=== PATIENT | male | born 1980 | race Caucasian/White ===

== ENCOUNTER 2019-11-04 14:33 | Inpatient (IN) | payer OTHER ==
--- NOTE | 2019-11-04 15:48 | PDOC ---
History of Present Illness - General History Source: Patient Exam Limitations: Language Barrier <Emily Mao - Last Filed: 11/04/19 16:24> <GilmoreFlorinda - Last Filed: 11/04/19 17:01> - General Chief Complaint: Wound Stated Complaint: SWOLLEN FOOT Time Seen by Provider: 11/04/19 15:28 Past History - Travel Traveled outside of the country in the last 30 days: No Close contact w/someone who was outside of country & ill: No - Psycho Social/Smoking Cessation Hx Smoking History: Never smoked Have you smoked in the past 12 months: No Information on smoking cessation initiated: No Hx Alcohol Use: No Drug/Substance Use Hx: No <Emily Mao - Last Filed: 11/04/19 16:24> <Florinda Gilmore - Last Filed: 11/04/19 17:01> - Past Medical History Allergies/Adverse Reactions: Allergies Allergy/AdvReac Type Severity Reaction Status Date / Time No Known Allergies Allergy Verified 11/04/19 15:02 Review of Systems - Review of Systems Able to Perform ROS?: Yes Comments:: 11/04/19 16:25 CONSTITUTIONAL: Absent: fever, chills, diaphoresis, generalized weakness, malaise, loss of appetite HEENT: Absent: rhinorrhea, nasal congestion, throat pain, throat swelling, difficulty swallowing, mouth swelling, ear pain, eye pain, visual Changes CARDIOVASCULAR: Absent: chest pain, loss of consciousness, palpitations, irregular heart rate, peripheral edema RESPIRATORY: Absent: cough, shortness of breath, dyspnea with exertion, orthopnea, wheezing, stridor, hemoptysis GASTROINTESTINAL: Absent: abdominal pain, abdominal distension, nausea, vomiting, diarrhea, constipation, melena, hematochezia GENITOURINARY: Absent: dysuria, frequency, urgency, hesitancy, hematuria, flank pain, genital pain MUSCULOSKELETAL: Absent: myalgia, arthralgia, joint swelling SKIN: Present: rash and overlying infection Absent: itching, pallor HEMATOLOGIC/IMMUNOLOGIC: Absent: easy bleeding, easy bruising, lymphadenopathy, frequent infections ENDOCRINE: Absent: unexplained weight gain, unexplained weight loss, heat intolerance, cold intolerance NEUROLOGIC: Absent: headache, focal weakness or paresthesias, dizziness, unsteady gait, seizure, mental status changes, bladder or bowel incontinence PSYCHIATRIC: Absent: anxiety, depression, suicidal or homicidal ideation, hallucinations. Is the patient limited French proficient: No <Emily Mao - Last Filed: 11/04/19 16:24> *Physical Exam - Vital Signs Last Vital Signs Temp Pulse Resp BP Pulse Ox 73 17 115/71 72 L 11/04/19 15:02 11/04/19 15:02 11/04/19 15:02 11/04/19 15:02 - Physical Exam 11/04/19 16:26 GENERAL: Well developed, well nourished. Awake and alert. No acute distress. HEENT: Normocephalic, atraumatic. PERRLA, EOMI. No conjunctival pallor. Sclera are non- icteric. Moist mucous membranes. NECK: Supple. Full ROM. No JVD. Carotid pulses 2+ and symmetric, without bruits. No thyromegaly. No lymphadenopathy. CARDIOVASCULAR: Regular rate and rhythm. No murmurs, rubs, or gallops. Distal pulses are 2+ and symmetric. PULMONARY: No evidence of respiratory distress. Lungs clear to auscultation bilaterally. No wheezing, rales or rhonchi. ABDOMINAL: Soft. Non-tender. Non-distended MUSCULOSKELETAL Normal range of motion at all joints. No bony deformities or tenderness. No CVA tenderness. EXTREMITIES: No cyanosis. No clubbing. (+) right lateral ankle edema. No calf tenderness. SKIN: Ulcer-like rash to the ventral aspect of the right foot measuring approximately the size of a quarter. Multiple vesicular-like lesions also on the ventral aspect of the right foot approximately the size of a pinhead. There is overlying erythema and warmth with associated swelling to the lateral aspect of the right ankle. Warm and dry. Normal capillary refill. No jaundice. NEUROLOGICAL: Alert, awake, appropriate. Cranial nerves 2-12 intact. No deficits to light touch and temperature in face, upper extremities and lower extremities. No motor deficits in the in face, upper extremities and lower extremities. Normoreflexic in the upper and lower extremities. Normal speech. Toes are down- going bilaterally. Gait is normal without ataxia. PSYCHIATRIC: Cooperative. Good eye contact. Appropriate mood and affect. <Emily Mao - Last Filed: 11/04/19 16:24> - Vital Signs Last Vital Signs Temp Pulse Resp BP Pulse Ox 73 17 115/71 72 L 11/04/19 15:02 11/04/19 15:02 11/04/19 15:02 11/04/19 15:02 <Florinda Gilmore - Last Filed: 11/04/19 17:01> ED Treatment Course - LABORATORY CBC & Chemistry Diagram: 11/04/19 16:25 11/04/19 16:25 - Medications Given in the ED: ED Medications Discontinued Medications Generic Name Dose Route Start Last Admin Trade Name Tyesha PRN Reason Stop Dose Admin Ceftriaxone Sodium 1,000 mg/ 50 mls @ 100 mls/hr 11/04/19 16:09 11/04/19 16: 40 Dextrose IVPB 11/04/19 16:38 100 mls/hr ONCE ONE Administration <Florinda Gilmore - Last Filed: 11/04/19 17:01> Medical Decision Making - Medical Decision Making 11/04/19 16:28 The patient is a 39-year-old male no past medical history who presents to the ER today for a rash to the top of his foot. He states the rash started Wednesday. He notes that it was like a blister which then broke. He states that since then the rash has become worse with more blisters popping up on the top of his foot. He also notes that his foot is very painful and swollen and warm to touch. Denies numbness and tingling and weakness to the affected extremity, history of diabetes and recent travel. A/P: Rash On exam patient with an ulcerative lesion and overlying cellulitis. There are areas of vesicular-like lesions. Questionable herpetic sabina versus staph infection. Patient unable to walk without pain; concern for osteo-. X-ray ordered Basic labs, blood cultures drawn. IV Vanco and ceftriaxone. We will also add IV acyclovir per patient's body weight to cover for potential herpetic infection. Plan for admission. Signout given to JEREMY Issa. Patient pending results prior to admission. <Emily Mao - Last Filed: 11/04/19 16:24> - Medical Decision Making I am the patient was seen and evaluated in conjunction with midlevel provider under my direct supervision, ancillary studies were reviewed. I agree with the plan as outlined with JEREMY Conway. HPI, workup/dispo as outlined. VS reviewed, will need repeat. initial spo2 72% which is unlikely as pt is in NAD, well appearing no septic or toxic features, afebrile. normotensive focused exam with right dorsal foot with erythema, swelling and overlying area of superficial ulcer with irregular borders, +pustules, popped blisters, sanguinous discharge, vesicular in appearance.. IV abx with ceftriaxone/vancomycin for mssa/mrsa coverage acyclovir for herpes simplex infection, poorly healing. cannot ambulate, unsafe for discharge basic labs and lytes. xray foot to eval for gas/osteomyelitis admit 11/04/19 16:58 <Florinda Gilmore - Last Filed: 11/04/19 17:01> Discharge - Discharge Information Problems reviewed: Yes <Emily Mao - Last Filed: 11/04/19 16:24> - Admission Yes <Florinda Gilmore - Last Filed: 11/04/19 17:01> - Discharge Information Clinical Impression/Diagnosis: Foot infection Condition: Fair
[2019-11-04] MEDS ORDERED: VANCOMYCIN 1 GM in D5W (PRE-DOCKED) 1,000 MG/250 ML IVPB ONE (15:50)
[2019-11-04] MEDS ORDERED: PIPERACILLIN/TAZOB 3.375 GM 3.375 GM in DEXTROSE 5%-WATER - 50 ML IVPB ONE (15:51)
[2019-11-04] MEDS ORDERED: ACYCLOVIR INJECTION 800 MG in DEXTROSE 5%-WATER - 100 ML IVPB ONE (16:08)
[2019-11-04] MEDS ORDERED: CEFTRIAXONE 1,000 MG in DEXTROSE 5%-WATER - 50 ML IVPB ONE (16:09)
[2019-11-04] MEDS ORDERED: VANCOMYCIN 1 GRAM (PRE-DOCKED) 1,000 MG/250 ML BAG IVPB ONE (16:29)
[2019-11-04] MEDS ORDERED: CEFTRIAXONE 1 GM/50 ML BAG ONE (16:29)
[2019-11-04] MEDS ORDERED: IBUPROFEN 600 MG TABLET (FP) PO ONE ×2 (16:47→17:01)
[2019-11-04 16:57] LABS: BASO % 0.7 % (0-2.0); EOS % 1.5 % (0-4.5); HEMATOCRIT 42.3 % (35.4-49); HEMOGLOBIN 14.6 GM/dL (11.7-16.9); LYMPH % 15.6 % (8-40); MCH 33.7 pg (25.7-33.7); MCHC 34.6 g/dl (32.0-35.9); MEAN CELL VOLUME 97.5 fl (80-96); MONO % 4.5 % (3.8-10.2); NEUT % 77.7 % (42.8-82.8); PLATELET COUNT 239 K/MM3 (134-434); RBC 4.34 M/mm3 (4.00-5.60); RDW 13.7 % (11.9-15.9)
[2019-11-04 17:35] LABS: ALBUMIN 3.7 g/dl (3.4-5.0); BILIRUBIN,TOTAL 0.3 mg/dL (0.2-1); BLOOD UREA NITROGEN 6.6 mg/dL (7-18); CALCIUM 8.2 mg/dL (8.5-10.1); CREATININE 0.7 mg/dL (0.55-1.3); POTASSIUM 4.6 mmol/L (3.5-5.1); TOT PROT 8.5 g/dl (6.4-8.2)
--- NOTE | 2019-11-04 17:45 | PDOC ---
*Physical Exam - Vital Signs Last Vital Signs Temp Pulse Resp BP Pulse Ox 73 17 115/71 99 11/04/19 15:02 11/04/19 15:02 11/04/19 15:02 11/04/19 15:02 ED Treatment Course - LABORATORY CBC & Chemistry Diagram: 11/04/19 16:25 11/04/19 16:25 - ADDITIONAL ORDERS Additional order review: Laboratory Results 11/04/19 16:25 Sodium 138 Potassium 4.6 Chloride 107 Carbon Dioxide 25 Anion Gap 6 L BUN 6.6 L Creatinine 0.7 Est GFR (CKD-EPI)AfAm 136.81 Est GFR (CKD-EPI)NonAf 118.04 Random Glucose 91 Calcium 8.2 L Total Bilirubin 0.3 AST 27 ALT 25 Alkaline Phosphatase 142 H Total Protein 8.5 H Albumin 3.7 11/04/19 16:25 RBC 4.34 MCV 97.5 H MCHC 34.6 RDW 13.7 MPV 9.0 Neutrophils % 77.7 Lymphocytes % 15.6 Monocytes % 4.5 Eosinophils % 1.5 Basophils % 0.7 - Medications Given in the ED: ED Medications Discontinued Medications Generic Name Dose Route Start Last Admin Trade Name Freq PRN Reason Stop Dose Admin Ceftriaxone Sodium 1,000 mg/ 50 mls @ 100 mls/hr 11/04/19 16:09 11/04/19 16: 40 Dextrose IVPB 11/04/19 16:38 100 mls/hr ONCE ONE Administration Ibuprofen 600 mg 11/04/19 16:47 11/04/19 17:00 Motrin - PO 11/04/19 16:48 600 mg ONCE ONE Administration Vancomycin HCl 1,000 mg 11/04/19 15:50 11/04/19 17:00 Vancomycin (Pre-Docked) IVPB 11/04/19 15:51 1,000 mg ONCE ONE Administration Protocol Medical Decision Making - Medical Decision Making Patient signed out to me by JEREMY Mao Patient received IV Vanc/Ceftriaxone/Acyclovir for possible herpetic rash with ? overlying staph/cellulitis Xray shows no gas Blood cultures, wound culture and viral cultures were sent Patient to be admitted 11/04/19 17:43 Discharge - Discharge Information Problems reviewed: Yes Clinical Impression/Diagnosis: Foot infection Condition: Stable - Admission Yes - Follow up/Referral - Patient Discharge Instructions - Post Discharge Activity
[2019-11-04 20:38] LABS: URINE APPEARANCE CLOUDY; URINE BILIRUBIN NEGATIVE (NEGATIVE); URINE COLOR YELLOW; URINE GLUCOSE (UA) NEGATIVE (NEGATIVE); URINE KETONE NEGATIVE (NEGATIVE); URINE LEUK ESTERASE NEGATIVE (NEGATIVE); URINE NITRITE NEGATIVE (NEGATIVE); URINE PROTEIN NEGATIVE (NEGATIVE); URINE UROBILINOGEN 0.2 mg/dL (0.2-1.0)
[2019-11-04] MEDS: ACETAMINOPHEN 325 MG TABLET (FP) PO PRN (20:47)
--- NOTE | 2019-11-04 20:57 | HP ---
Admitting History and Physical - Admission Chief Complaint: right foot swelling and pain History of Present Illness: 39-year-old male no past medical history who presents to the ED for evaluation of swelling and rash to right foot. symptoms started as "heat and tingling" 4 days ago, followed by blistering lesions which opened up. He does not recall having varicella as a child. He is now experiencing pain and swelling to the right foot which affects his ability to ambulate. He also endorses one week of a productive cough without fever/chills/SOB. Denies sick contacts, history of diabetes and recent travel. In ED: Vitals: BP 115/71, HR 73bpm, RR 17, Wt 79.4kg, O2 sat 99% (rm air) Viral and bacterial wound cultures sent to lab, in addition to blood cultures. Pt dosed Vanco and ceftriaxone, along with IV ceftriaxone. Decision made to admit for further management. 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 emergency contact: Canelo Hewitt [phone] Home Medications - Allergies Allergies/Adverse Reactions: Allergies Allergy/AdvReac Type Severity Reaction Status Date / Time No Known Allergies Allergy Verified 11/04/19 15:02 Family Medical History Family History: Unremarkable (pt states mother is alive age 75 and father is alive and well age 70. All his siblings live in [place] and he is unaware of any medical problems) Review of Systems - Review of Systems Constitutional: reports: No Symptoms Eyes: reports: No Symptoms HENT: reports: No Symptoms Neck: reports: No Symptoms Cardiovascular: reports: No Symptoms Respiratory: reports: Cough Gastrointestinal: reports: No Symptoms Genitourinary: reports: No Symptoms Breasts: reports: No Symptoms Reported Musculoskeletal: reports: Extremity Pain (right foot pain) Integumentary: reports: Blister, Lesions (right foot) Neurological: reports: No Symptoms Endocrine: reports: No Symptoms Hematology/Lymphatic: reports: No Symptoms Psychiatric: reports: No Symptoms Physical Examination Vital Signs: Vital Signs Temperature Pulse Rate 73 11/04/19 15:02 Respiratory Rate 17 11/04/19 15:02 Blood Pressure 115/71 11/04/19 15:02 O2 Sat by Pulse Oximetry (%) 99 11/04/19 15:02 Constitutional: Yes: Well Nourished, No Distress, Calm Eyes: Yes: WNL, Conjunctiva Clear, EOM Intact, PERRL HENT: Yes: Atraumatic, Normocephalic Neck: Yes: Supple, Trachea Midline Cardiovascular: Yes: Regular Rate and Rhythm Respiratory: Yes: Regular, CTA Bilaterally Gastrointestinal: Yes: Normal Bowel Sounds, Soft ...Rectal Exam: Yes: Deferred Musculoskeletal: Yes: WNL Extremities: Yes: Other (right foot: +2 edema, two small blisters and one large ulcer lesion all with circumferential redness. Erythema tracking up to lateral ankle) Edema: RLE: 2+ Peripheral Pulses WNL: Yes Peripheral Pulses: Left Radial: 2+, Right Radial: 2+, Left Doralis Pedis: 2+, Right Dorsalis Pedis: 2+ Integumentary: Yes: Erythema Wound/Incision: Yes: Open to air Labs: CBC, BMP 11/04/19 16:25 11/04/19 16:25 Imaging - Results X-ray: Report Reviewed (right foot and ankle x-ray -- pending) Problem List - Problems (1) Herpetic dermatitis Assessment/Plan: acyclovir 800mg TID ID consult for AM isolation precautions Code(s): B00.89 - OTHER HERPESVIRAL INFECTION (2) Cellulitis of foot, right Assessment/Plan: Twice daily wound care ceftriaxone 1gm daily for superimposed bacterial infection f/u viral and bacterial wound cultures Code(s): L03.115 - CELLULITIS OF RIGHT LOWER LIMB Assessment/Plan PPX: ambulate in room as tolerated Bowel regimen: senna APAP PRN pain Visit type - Emergency Visit Emergency Visit: Yes ED Registration Date: 11/04/19 Care time: The patient presented to the Emergency Department on the above date and was hospitalized for further evaluation of their emergent condition. - New Patient This patient is new to me today: Yes Date on this admission: 11/04/19 - Critical Care Critical Care patient: No
[2019-11-04] MEDS ORDERED: PT OWN MED DRAWER 7, Y5N ONE ×2 (22:12→22:32)
[2019-11-04 22:18] LABS: ERYTHROCYTE SEDIMENTATION RATE 19 mm/hr (0-10)
[2019-11-04] MEDS: MUPIROCIN 2% TOPICAL OINTMENT 22 GM TUBE TP SCH (22:57)
[2019-11-04] MEDS: HEPARIN NA (PORCINE) 5,000 UNITS/ML 1ML VIAL SQ SCH (22:57)
[2019-11-04] MEDS: ACYCLOVIR 800 MG TABLET PO SCH (22:57)
[2019-11-04] MEDS: SENNOSIDES 8.6MG TABLET (FP) PO SCH (22:57)
[2019-11-05] MEDS: ACETAMINOPHEN 325 MG TABLET (FP) PO PRN ×3 (02:00→21:22)
[2019-11-05] MEDS: ACYCLOVIR 800 MG TABLET PO SCH ×3 (06:12→21:22)
[2019-11-05 06:16] VITALS: BMI 29.4
[2019-11-05 08:42] LABS: BASO % 0.3 % (0-2.0); HEMATOCRIT 41.7 % (35.4-49); HEMOGLOBIN 14.2 GM/dL (11.7-16.9); LYMPH % 12.6 % (8-40); MCH 33.1 pg (25.7-33.7); MCHC 34.1 g/dl (32.0-35.9); MEAN CELL VOLUME 96.9 fl (80-96); MEAN PLT VOLUME 9.3 fl (7.5-11.1); MONO % 8.5 % (3.8-10.2); NEUT % 77.6 % (42.8-82.8); PLATELET COUNT 210 K/MM3 (134-434); RBC 4.31 M/mm3 (4.00-5.60); RDW 13.4 % (11.9-15.9); WHITE BLOOD COUNT 13.1 K/mm3 (4.0-10.0)
[2019-11-05 08:55] LABS: MAGNESIUM 2.2 mg/dL (1.8-2.4); PHOSPHOROUS 4.2 mg/dL (2.5-4.9)
[2019-11-05] MEDS ORDERED: CEFTRIAXONE 1 GM in DEXTROSE 5%-WATER - 50 ML IVPB SCH (10:00)
[2019-11-05] MEDS ORDERED: FLU VACCINE QUAD 60 MCG/0.5 ML (MDV 19-20) IM ONE (10:00)
[2019-11-05] MEDS ORDERED: cefTRIAXone SODIUM 1 GM VIAL ONE (10:06)
[2019-11-05] MEDS ORDERED: DEXTROSE 5%-WATER - 50 ML IVPB ONE ×2 (10:06→22:17)
[2019-11-05] MEDS: MUPIROCIN 2% TOPICAL OINTMENT 22 GM TUBE TP SCH ×2 (10:11→21:22)
[2019-11-05] MEDS: HEPARIN NA (PORCINE) 5,000 UNITS/ML 1ML VIAL SQ SCH ×2 (10:11→21:21)
--- NOTE | 2019-11-05 12:08 | EKG ---
Test Reason : Blood Pressure : / mmHG Vent. Rate : 071 BPM Atrial Rate : 071 BPM P-R Int : 166 ms QRS Dur : 090 ms QT Int : 398 ms P-R-T Axes : 037 -07 022 degrees QTc Int : 432 ms NORMAL SINUS RHYTHM NORMAL ECG NO PREVIOUS ECGS AVAILABLE Confirmed by MARCELLA WOODARD MD ([id number]) on 11/05/2019 12:08:25 PM Referred By: Confirmed By:MARCELLA WOODARD MD
[2019-11-05] MEDS ORDERED: PT OWN MED DRAWER 7, Y5N ONE ×2 (14:31→18:49)
[2019-11-05] MEDS ORDERED: AMPICILLIN NA/SULBACTAM NA 3 GM in SODIUM CHLORIDE 100 ML IVPB SCH (17:45)
[2019-11-05] MEDS: SENNOSIDES 8.6MG TABLET (FP) PO SCH (21:22)
--- NOTE | 2019-11-05 21:55 | PN ---
Progress Note (short form) - Note Progress Note: ID CONSULT DICTATED CELLULITIS R FOOT ? L5 DERMATOME VZV AWAIT C/S EMPIRIC VANCOMYCIN/ ZOSYN VALTREX PO
[2019-11-05] MEDS ORDERED: PIPERACILLIN/TAZOBACTAM 3.375 GM VIAL IVPB ONE (22:17)
[2019-11-05] MEDS: PIPERACILLIN/TAZOB 3.375 GM 3.375 GM in DEXTROSE 5%-WATER - 50 ML IVPB SCH (22:23)
[2019-11-05] MEDS: valACYclovir HCL 500 MG TABLET (FP) PO SCH (22:23)
--- NOTE | 2019-11-05 22:23 | PN ---
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 OBJECTIVE: Vital Signs Period Temp Pulse Resp BP Sys/Hardy Pulse Ox Last 24 Hr 97.9 F-98.5 F 62-78 18-18 118-153/70-86 GENERAL: The patient is awake, alert, and fully oriented, in no acute distress. HEAD: Normal with no signs of trauma. EYES: PERRL, extraocular movements intact, sclera anicteric, conjunctiva clear. No ptosis. ENT: Ears normal, nares patent, oropharynx clear without exudates, moist mucous membranes. NECK: Trachea midline, full range of motion, supple. LUNGS: Breath sounds equal, clear to auscultation bilaterally, no wheezes, no crackles, no accessory muscle use. HEART: Regular rate and rhythm, S1, S2 without murmur, rub or gallop. ABDOMEN: Soft, nontender, nondistended, normoactive bowel sounds, no guarding, no rebound, no hepatosplenomegaly, no masses. EXTREMITIES: 2+ pulses, warm, well-perfused, RLE foot edema, RLE erythematous, ulcer lesion with black/eschar center, small fluid filled and partially erupted vesicles surrounding ulcer. NEUROLOGICAL: Cranial nerves II through XII grossly intact. Normal speech, gait not observed. PSYCH: Normal mood, normal affect. SKIN: RLE erythematous, ulcer lesion with black/eschar center, small fluid filled and partially erupted vesicles surrounding ulcer. Laboratory Results - last 24 hr 11/05/19 11/05/19 07:05 07:05 WBC 13.1 H RBC 4.31 Hgb 14.2 Hct 41.7 MCV 96.9 H MCH 33.1 MCHC 34.1 RDW 13.4 Plt Count 210 MPV 9.3 Absolute Neuts (auto) 10.2 H Neutrophils % 77.6 Lymphocytes % 12.6 Monocytes % 8.5 D Eosinophils % 1.0 Basophils % 0.3 Nucleated RBC % 0 Phosphorus 4.2 Magnesium 2.2 Active Medications Generic Name Dose Route Start Last Admin Trade Name Freq PRN Reason Stop Dose Admin Acetaminophen 650 mg 11/04/19 19:17 03/01/20 21:22 Tylenol - PO 650 mg Q6H PRN Administration PAIN LEVEL 4 - 6 Heparin Sodium (Porcine) 5,000 unit 11/04/19 22:00 11/05/19 21:21 Heparin - SQ 5,000 unit BID JEANETTE Administration Vancomycin HCl 1,000 mg in 250 mls @ 166.667 mls/hr 11/05/19 22:00 Vancomycin (Pre-Docked) IVPB Q12H JEANETTE Protocol Piperacillin Sod/Tazobactam 50 mls @ 100 mls/hr 11/05/19 22:00 Sod 3.375 gm/ Dextrose IVPB Q8H-IV JEANETTE Protocol Mupirocin 1 applic 11/04/19 22:00 11/05/19 21:22 Bactroban 2% Ointment - TP 1 applic BID JEANETTE Administration Senna 2 tab 11/04/19 22:00 11/05/19 21:22 Senna - PO 2 tab HS JEANETTE Administration Valacyclovir HCl 1,000 mg 11/05/19 22:00 Valtrex - PO TID JEANETTE ASSESSMENT/PLAN: 39 year old M from [place], denies PMHx, presents with RLE swelling, erythema and pain x1 week founnd to have RLE cellulitis (superinfection) 2/2 ?herpetic zoster rash. 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 IV abx with vanc/zosyn, IV Valtrex, monitor CRE function, follow cultures RLE elevation, wound care ID Consult: Dr Keith DVT ppx: Heparin SC Airborne/Contact isolation Med Surg Problem List - Problems (1) Cellulitis of foot, right Code(s): L03.115 - CELLULITIS OF RIGHT LOWER LIMB Visit type - Emergency Visit Emergency Visit: Yes ED Registration Date: 11/04/19 Care time: The patient presented to the Emergency Department on the above date and was hospitalized for further evaluation of their emergent condition. - New Patient This patient is new to me today: Yes Date on this admission: 11/07/19 - Critical Care Critical Care patient: No - Discharge Referral Referred to [facility] No
[2019-11-05] MEDS: VANCOMYCIN 1 GRAM (PRE-DOCKED) 1,000 MG/250 ML BAG IVPB SCH (22:34)
[2019-11-06] MEDS ORDERED: DEXTROSE 5%-WATER - 50 ML IVPB ONE ×2 (00:45→09:44)
[2019-11-06] MEDS ORDERED: PIPERACILLIN/TAZOBACTAM 3.375 GM VIAL IVPB ONE ×2 (00:45→09:44)
[2019-11-06] MEDS: PIPERACILLIN/TAZOB 3.375 GM 3.375 GM in DEXTROSE 5%-WATER - 50 ML IVPB SCH ×2 (01:11→10:13)
[2019-11-06] MEDS: valACYclovir HCL 500 MG TABLET (FP) PO SCH ×2 (05:41→14:00)
[2019-11-06 07:59] LABS: BASO % 0.6 % (0-2.0); EOS % 0.6 % (0-4.5); HEMATOCRIT 42.3 % (35.4-49); HEMOGLOBIN 14.4 GM/dL (11.7-16.9); LYMPH % 12.3 % (8-40); MCH 32.9 pg (25.7-33.7); MCHC 34.1 g/dl (32.0-35.9); MEAN CELL VOLUME 96.4 fl (80-96); MEAN PLT VOLUME 9.5 fl (7.5-11.1); MONO % 6.9 % (3.8-10.2); NEUT % 79.6 % (42.8-82.8); PLATELET COUNT 224 K/MM3 (134-434); RBC 4.39 M/mm3 (4.00-5.60); RDW 13.5 % (11.9-15.9); WHITE BLOOD COUNT 11.6 K/mm3 (4.0-10.0)
[2019-11-06 08:16] LABS: CHOLESTEROL 133 mg/dL (50-200); HDL CHOLESTEROL 48 mg/dL (40-60); LDL CHOLESTEROL (ONLY SJRH) 65 mg/dL (5-100); TRIGLYCERIDES 127 mg/dL (0-150)
[2019-11-06 08:24] LABS: ALBUMIN 3.2 g/dl (3.4-5.0); BILIRUBIN,TOTAL 0.5 mg/dL (0.2-1); BLOOD UREA NITROGEN 22.5 mg/dL (7-18); CALCIUM 8.6 mg/dL (8.5-10.1); CREATININE 2.9 mg/dL (0.55-1.3); POTASSIUM 4.1 mmol/L (3.5-5.1); TOT PROT 7.5 g/dl (6.4-8.2)
--- NOTE | 2019-11-06 09:20 | PN ---
Progress Note, Physician History of Present Illness: 39 year old M from [place], denies PMHx, presents with RLE swelling, erythema and pain x1 week founnd to have RLE cellulitis (superinfection) 2/2 ?herpetic zoster rash. - Current Medication List Current Medications: Active Medications Acetaminophen (Tylenol -) 650 mg PO Q6H PRN PRN Reason: PAIN LEVEL 4 - 6 Last Admin: 11/05/19 21:22 Dose: 650 mg Heparin Sodium (Porcine) (Heparin -) 5,000 unit SQ BID JEANETTE Last Admin: 11/05/19 21:21 Dose: 5,000 unit Vancomycin HCl (Vancomycin (Pre-Docked)) 1,000 mg in 250 mls @ 166.667 mls/hr IVPB Q12H JEANETTE; Protocol Last Admin: 11/05/19 22:34 Dose: 166.667 mls/hr Piperacillin Sod/Tazobactam (Sod 3.375 gm/ Dextrose) 50 mls @ 100 mls/hr IVPB Q8H-IV JEANETTE; Protocol Last Admin: 11/06/19 01:11 Dose: 100 mls/hr Mupirocin (Bactroban 2% Ointment -) 1 applic TP BID JEANETTE Last Admin: 11/05/19 21:22 Dose: 1 applic Senna (Senna -) 2 tab PO HS JEANETTE Last Admin: 11/05/19 21:22 Dose: 2 tab Valacyclovir HCl (Valtrex -) 1,000 mg PO TID JEANETTE Last Admin: 11/06/19 05:41 Dose: 1,000 mg - Objective Vital Signs: Vital Signs Temperature 98.3 F 11/06/19 03:00 Pulse Rate 61 11/06/19 03:00 Respiratory Rate 18 11/06/19 03:00 Blood Pressure 142/68 11/06/19 03:00 O2 Sat by Pulse Oximetry (%) 99 11/04/19 15:02 Labs: CBC, BMP 11/06/19 07:10 11/06/19 07:10 Problem List - Problems (1) Prophylactic measure Code(s): Z29.9 - ENCOUNTER FOR PROPHYLACTIC MEASURES, UNSPECIFIED (2) Cellulitis of foot, right Code(s): L03.115 - CELLULITIS OF RIGHT LOWER LIMB (3) Herpetic dermatitis Code(s): B00.89 - OTHER HERPESVIRAL INFECTION
[2019-11-06] MEDS ORDERED: PT OWN MED DRAWER 7, Y5N ONE ×2 (09:45→15:50)
[2019-11-06] MEDS: HEPARIN NA (PORCINE) 5,000 UNITS/ML 1ML VIAL SQ SCH ×2 (10:12→21:24)
[2019-11-06] MEDS: VANCOMYCIN 1 GRAM (PRE-DOCKED) 1,000 MG/250 ML BAG IVPB SCH (10:13)
[2019-11-06] MEDS: MUPIROCIN 2% TOPICAL OINTMENT 22 GM TUBE TP SCH ×2 (10:13→21:24)
[2019-11-06] MEDS ORDERED: DEXTROSE 5%-WATER 100 ML IVPB ONE (16:52)
--- NOTE | 2019-11-06 16:54 | CONSULT ---
Consult Consult Specialty:: Nephrology Reason for Consultation:: TATE - History of Present Illness Chief Complaint: right foot pain and erythema History of Present Illness: Pt is a 39 year old male with no past medical history who presents to the ER with right foot pain and swelling. He was admitted for treatment. He was treated for cellulitis and possible zoster. He still has foot pain. He denies fevers or chills. I was called to evaluate him for TATE. He was found to have elevated administrator social welfare on labs today. He denies dysuria or hematuria. He denies history of CKD. He was on acylovir, zosyn and ceftriaxone. 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 History of Recent Travel: No Home Medications - Allergies Allergies/Adverse Reactions: Allergies Allergy/AdvReac Type Severity Reaction Status Date / Time No Known Allergies Allergy Verified 11/04/19 15:02 Family Medical History Family History: Denies Review of Systems - Review of Systems Constitutional: reports: Malaise Eyes: reports: No Symptoms HENT: reports: No Symptoms Neck: reports: No Symptoms Cardiovascular: reports: No Symptoms Respiratory: reports: No Symptoms Gastrointestinal: reports: No Symptoms Genitourinary: reports: No Symptoms Breasts: reports: No Symptoms Reported Musculoskeletal: reports: No Symptoms Integumentary: reports: Erythema Endocrine: reports: No Symptoms Psychiatric: reports: No Symptoms Physical Exam Vital Signs: Vital Signs Temperature 98.9 F 11/06/19 14:00 Pulse Rate 71 11/06/19 14:00 Respiratory Rate 20 11/06/19 14:00 Blood Pressure 127/84 11/06/19 14:00 O2 Sat by Pulse Oximetry (%) 99 11/04/19 15:02 Constitutional: Yes: Calm Eyes: Yes: Conjunctiva Clear HENT: Yes: Atraumatic Neck: Yes: Supple Cardiovascular: Yes: S1, S2 Respiratory: Yes: CTA Bilaterally Gastrointestinal: Yes: Normal Bowel Sounds, Soft Renal/: Yes: WNL Musculoskeletal: Yes: WNL Edema: No Integumentary: Yes: Other (right foot erythema) Neurological: Yes: Oriented Psychiatric: Yes: Oriented Labs: CBC, BMP 11/06/19 07:10 11/06/19 07:10 Imaging - Results X-ray: Report Reviewed Problem List - Problems (1) TATE (acute kidney injury) Code(s): N17.9 - ACUTE KIDNEY FAILURE, UNSPECIFIED (2) Cellulitis of foot, right Code(s): L03.115 - CELLULITIS OF RIGHT LOWER LIMB (3) Foot infection Code(s): L08.9 - LOCAL INFECTION OF THE SKIN AND SUBCUTANEOUS TISSUE, UNSP Assessment/Plan Current Medications Generic Name Dose Route Start Last Admin Trade Name Freq PRN Reason Stop Dose Admin Acetaminophen 650 mg 11/04/19 19:17 11/05/19 21:22 Tylenol - PO 650 mg Q6H PRN Administration PAIN LEVEL 4 - 6 Heparin Sodium (Porcine) 5,000 unit 11/04/19 22:00 11/06/19 10:12 Heparin - SQ 5,000 unit BID JEANETTE Administration Ceftriaxone Sodium 2 gm/ 100 mls @ 200 mls/hr 11/06/19 16:45 Dextrose IVPB DAILY JEANETTE Protocol Clindamycin Phosphate 600 mg in 50 mls @ 100 mls/hr 11/06/19 18:00 Cleocin 600 Mg Premix Ivpb - IVPB Q8H-IV JEANETTE Protocol Mupirocin 1 applic 11/04/19 22:00 11/06/19 10:13 Bactroban 2% Ointment - TP 1 applic BID JEANETTE Administration Senna 2 tab 11/04/19 22:00 11/05/19 21:22 Senna - PO 2 tab HS JEANETTE Administration Impression 1. TATE 2. cellulitis 3. possible zoster Plan - zosyn and acyclovir were held - check ua - send urine eos - repeat labs in am - start fluids - check renal ultrasound - send urine lytes and administrator social welfare to calc fena
[2019-11-06] MEDS: SODIUM CHLORIDE 0.45% 1,000 ML IV SCH (17:26)
[2019-11-06] MEDS: CEFTRIAXONE 2 GM in DEXTROSE 5%-WATER 100 ML IVPB SCH (17:27)
--- NOTE | 2019-11-06 17:31 | PN ---
Progress Note, Physician Chief Complaint: Examined sitting in chair. c/o pain to right foot. History of Present Illness: 39 year old M from [place], denies PMHx, presents with RLE swelling, erythema and pain x1 week founnd to have RLE cellulitis (superinfection) 2/2 ?herpetic zoster rash. - Current Medication List Current Medications: Active Medications Acetaminophen (Tylenol -) 650 mg PO Q6H PRN PRN Reason: PAIN LEVEL 4 - 6 Last Admin: 11/05/19 21:22 Dose: 650 mg Heparin Sodium (Porcine) (Heparin -) 5,000 unit SQ BID JEANETTE Last Admin: 11/06/19 10:12 Dose: 5,000 unit Ceftriaxone Sodium 2 gm/ (Dextrose) 100 mls @ 200 mls/hr IVPB DAILY JEANETTE; Protocol Last Admin: 11/06/19 17:27 Dose: 200 mls/hr Clindamycin Phosphate (Cleocin 600 Mg Premix Ivpb -) 600 mg in 50 mls @ 100 mls /hr IVPB Q8H-IV JEANETTE; Protocol Sodium Chloride (1/2 Normal Saline) 1,000 mls @ 83 mls/hr IV ASDIR JEANETTE Last Admin: 11/06/19 17:26 Dose: 83 mls/hr Mupirocin (Bactroban 2% Ointment -) 1 applic TP BID [facility] Last Admin: 11/06/19 10:13 Dose: 1 applic Senna (Senna -) 2 tab PO HS JEANETTE Last Admin: 11/05/19 21:22 Dose: 2 tab - Objective Vital Signs: Vital Signs Temperature 98.9 F 11/06/19 14:00 Pulse Rate 71 11/06/19 14:00 Respiratory Rate 20 11/06/19 14:00 Blood Pressure 127/84 11/06/19 14:00 O2 Sat by Pulse Oximetry (%) 99 11/04/19 15:02 Constitutional: Yes: Well Nourished, No Distress, Calm Eyes: Yes: WNL, Conjunctiva Clear HENT: Yes: WNL, Atraumatic, Normocephalic Neck: Yes: WNL, Supple, Trachea Midline Cardiovascular: Yes: WNL, Regular Rate and Rhythm Respiratory: Yes: WNL, Regular, CTA Bilaterally Gastrointestinal: Yes: WNL, Normal Bowel Sounds ...Rectal Exam: Yes: Deferred Genitourinary: Yes: WNL Breast(s): Yes: WNL Musculoskeletal: Yes: WNL Extremities: Yes: Erythema, Other (right foot: +2 edema, two small blisters ruptured and one large ulcer lesion all with circumferential redness. Erythema tracking up to lateral ankle) Labs: CBC, BMP 11/06/19 07:10 11/06/19 07:10 - ....Imaging Ultrasound: Pending (renal US pending) Problem List - Problems (1) Prophylactic measure Assessment/Plan: FEN Fluids: adequate PO intake, will start IVF with rising Cr Electrolytes: monitor & replete as needed Nutrition: reg diet DVT moderate risk sq heparin Dispo Maintain as inpatient full code discharge planning Code(s): Z29.9 - ENCOUNTER FOR PROPHYLACTIC MEASURES, UNSPECIFIED (2) Cellulitis of foot, right Assessment/Plan: right foot with cellulitic changes started on vanco and zosyn Cr rising vanco stopped and will check random level elevate LE Code(s): L03.115 - CELLULITIS OF RIGHT LOWER LIMB (3) Herpetic dermatitis Assessment/Plan: started on valtrex Cr from 0.6 --> 2.9 stopped and will cont to monitor lesions varicella ab pending ID following contact isolation Code(s): B00.89 - OTHER HERPESVIRAL INFECTION (4) TATE (acute kidney injury) Assessment/Plan: Cr 0.6-->2.9 after receiving valtrex urine lytes sent and pending ua pending IVF started renal US pending further avoid nephrotoxic agents renal consulted Code(s): N17.9 - ACUTE KIDNEY FAILURE, UNSPECIFIED Visit type - Emergency Visit Emergency Visit: Yes ED Registration Date: 11/04/19 Care time: The patient presented to the Emergency Department on the above date and was hospitalized for further evaluation of their emergent condition. - New Patient This patient is new to me today: Yes Date on this admission: 11/06/19 - Critical Care Critical Care patient: No - Discharge Referral Referred to [facility] No
[2019-11-06] MEDS: CLINDAMYCIN 600MG PREMIX IVPB 600 MG/50 ML BAG IVPB SCH (17:47)
--- NOTE | 2019-11-06 21:05 | PN ---
Progress Note, Physician History of Present Illness: AWAKE IN BED OFFERS NO COMPLAINTS DENIES FOOT PAIN MARKED RISE IN CR NOTED - Current Medication List Current Medications: Active Medications Acetaminophen (Tylenol -) 650 mg PO Q6H PRN PRN Reason: PAIN LEVEL 4 - 6 Last Admin: 11/05/19 21:22 Dose: 650 mg Heparin Sodium (Porcine) (Heparin -) 5,000 unit SQ BID JEANETTE Last Admin: 11/06/19 10:12 Dose: 5,000 unit Ceftriaxone Sodium 2 gm/ (Dextrose) 100 mls @ 200 mls/hr IVPB DAILY JEANETTE; Protocol Last Admin: 11/06/19 17:27 Dose: 200 mls/hr Clindamycin Phosphate (Cleocin 600 Mg Premix Ivpb -) 600 mg in 50 mls @ 100 mls /hr IVPB Q8H-IV JEANETTE; Protocol Last Admin: 11/06/19 17:47 Dose: 100 mls/hr Sodium Chloride (1/2 Normal Saline) 1,000 mls @ 83 mls/hr IV ASDIR JEANETTE Last Admin: 11/06/19 17:26 Dose: 83 mls/hr Mupirocin (Bactroban 2% Ointment -) 1 applic TP BID JEANETTE Last Admin: 11/06/19 10:13 Dose: 1 applic Senna (Senna -) 2 tab PO HS JEANETTE Last Admin: 11/05/19 21:22 Dose: 2 tab - Objective Vital Signs: Vital Signs Temperature 98.0 F 11/06/19 18:39 Pulse Rate 88 11/06/19 18:39 Respiratory Rate 20 11/06/19 18:39 Blood Pressure 128/90 11/06/19 18:39 O2 Sat by Pulse Oximetry (%) 99 11/04/19 15:02 Constitutional: Yes: No Distress Cardiovascular: Yes: Regular Rate and Rhythm, S1, S2 Respiratory: Yes: CTA Bilaterally Gastrointestinal: Yes: Normal Bowel Sounds, Soft Extremities: Yes: Other (+ SWELLING/ ERYTHEMA LATERAL ASPECT R FOOT DRY ULCERS , DORSUM OF FOOT NO TENDERNESS TO PALPATION) Labs: CBC, BMP 11/06/19 07:10 11/06/19 07:10 Assessment/Plan CELLULITIS R FOOT ? ACUTE RENAL FAILURE + WOUND C/S GRP A STREP D/C VANCO/ ZOSYN/ ACV SUBSTITUTE CEFTRIAXONE/ CLINDAMYCIN IVF REPEAT CHEMISTRIES
[2019-11-06] MEDS: SENNOSIDES 8.6MG TABLET (FP) PO SCH (21:24)
[2019-11-07] MEDS: CLINDAMYCIN 600MG PREMIX IVPB 600 MG/50 ML BAG IVPB SCH ×3 (01:04→17:41)
[2019-11-07 08:24] LABS: BASO % 0.9 % (0-2.0); EOS % 1.5 % (0-4.5); HEMATOCRIT 41.6 % (35.4-49); HEMOGLOBIN 14.1 GM/dL (11.7-16.9); LYMPH % 21.1 % (8-40); MEAN PLT VOLUME 9.7 fl (7.5-11.1); MONO % 9.4 % (3.8-10.2); NEUT % 67.1 % (42.8-82.8); PLATELET COUNT 223 K/MM3 (134-434); RBC 4.29 M/mm3 (4.00-5.60); RDW 13.6 % (11.9-15.9); WHITE BLOOD COUNT 7.2 K/mm3 (4.0-10.0)
[2019-11-07 08:29] LABS: INR 1.13 (0.83-1.09); PROTHROMBIN TIME (PATIENT) 13.3 SEC (9.7-13.0)
--- NOTE | 2019-11-07 08:30 | CONS ---
INFECTIOUS DISEASE CONSULTATION DATE OF CONSULTATION: 11/05/2019 HISTORY OF PRESENT ILLNESS: The patient is a 39-year-old male who was evaluated for cellulitis of the right foot. He reports developing onset of pain and swelling of the right foot on Friday, November 01, 2019. He reports developing a blister which subsequently ruptured. He noted increasing pain and swelling of the right foot. He presented to the emergency room where he was noted to have cellulitis of the right foot. He was empirically treated with vancomycin and ceftriaxone. The patient denies any traumatic injury, denies any associated fever or chills. No history of multidrug resistant pathogens. PAST MEDICAL HISTORY: Negative. ALLERGIES: No known allergies. LABORATORY DATA: White count 13.1. Creatinine 0.7. ESR is 19. X-ray of the foot negative for fracture or dislocation. Urinalysis negative. PHYSICAL EXAMINATION: General: He is awake and alert. He is not acutely toxic-appearing. Vital Signs: Temperature 98.5, blood pressure 153/83, pulse 62, regular, respirations 18 per minute. HEENT: Sclerae anicteric. Heart Sounds: S1, S2. Lungs: Clear. Abdomen: Soft and nontender. Right Lower Extremity: There is swelling of the left foot. There are 3 ulcerative lesions present on the lateral aspect of the right foot. They appear dry without purulent drainage. There is diffuse swelling of the lateral aspect of the right foot with slight erythema and warmth. It is tender to palpation. IMPRESSION: 1. Cellulitis of the right foot. 2. Possible Herpes zoster L5 dermatome. Await culture results. Empiric antibiotic coverage with vancomycin and Zosyn. Will also empirically treat with Valtrex 1 g p.o. t.i.d. Elevation, analgesics. Will follow. Thank you for the kind referral. MARCELLA MAYA M.D. SACHA/[id number]
[2019-11-07 08:58] LABS: ALBUMIN 2.9 g/dl (3.4-5.0); BILIRUBIN,TOTAL 0.7 mg/dL (0.2-1); BLOOD UREA NITROGEN 16.6 mg/dL (7-18); CREATININE 2.2 mg/dL (0.55-1.3); MAGNESIUM 2.1 mg/dL (1.8-2.4); POTASSIUM 4.5 mmol/L (3.5-5.1); TOT PROT 7.4 g/dl (6.4-8.2)
--- NOTE | 2019-11-07 09:58 | PN ---
Physical Exam: SUBJECTIVE: Patient seen and examined. reports discomfort of abdomen and flank during infusion of antibiotics. denies any chest pain, shortness of breath of wheezing. 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 He does not mix any chemicals and usually keeps his work boots on. He notices that his right foot was painful and noticed a small abrasion. He was worried and poured alcohol directly into the wound. He then developed small wounds above the original wound. OBJECTIVE: Patient is a 39 year old male from [facility]. He denies any past medical history and is on no home medications. Patient presents to the ED with right foot abrasions, edema and pain that started on . He is being treated for cellulitis vs. herpatic zoster outbreak. During treatment, he was noted to have TATE and antibiotics held. He is now on Ceftriaxone and Clindamycin. Patient reports pain of the abdomen and flanks yesterday after being given antibiotics. He denies any nausea or vomiting. He denies any shortness of breath or wheezing. problem list: cellulitis vs herpes zoster right lower ext edema TATE Vital Signs Period Temp Pulse Resp BP Sys/Hardy Pulse Ox Last 24 Hr 98.0 F-99 F 60-88 20-20 120-138/66-90 100 GENERAL: The patient is awake, alert, and fully oriented, in no acute distress. speaks nigerian but mostly speaks danish. HEAD: Normal with no signs of trauma. EYES: PERRL, extraocular movements intact, sclera anicteric, conjunctiva clear. No ptosis. ENT: Ears normal, nares patent, oropharynx clear without exudates, moist mucous membranes. NECK: Trachea midline, full range of motion, supple. LUNGS: Breath sounds equal, clear to auscultation bilaterally, no wheezes HEART: Regular rate and rhythm, S1, S2 without murmur, rub or gallop. ABDOMEN: Soft, nontender, nondistended, normoactive bowel sounds EXTREMITIES: right lower foot edema on anterior aspect of foot, with three abrasion on right foot. NEUROLOGICAL: Normal speech, gait not observed. Laboratory Results - last 24 hr 11/04/19 11/06/19 11/06/19 23:30 07:10 07:10 WBC RBC Hgb Hct MCV MCH MCHC RDW Plt Count MPV Absolute Neuts (auto) Neutrophils % Lymphocytes % Monocytes % Eosinophils % Basophils % Nucleated RBC % PT with INR INR Sodium Potassium Chloride Carbon Dioxide Anion Gap BUN Creatinine Est GFR (CKD-EPI)AfAm Est GFR (CKD-EPI)NonAf Random Glucose Calcium Magnesium Total Bilirubin AST ALT Alkaline Phosphatase Total Protein Albumin Urine Osmolality Ur Random Creatinine Ur Random Sodium Random Vancomycin RPR Titer Nonreactive Hep A IgM Ab Confirm Negative Hep Bs Antigen Negative Hep B Core IgM Ab Negative Hepatitis C Ab (EIA) <0.1 HIV 1&2 Ag/Ab, 4th Gen Non reactive VZV IgM Antibody < 0.91 11/06/19 11/06/19 11/06/19 16:00 16:00 16:00 WBC RBC Hgb Hct MCV MCH MCHC RDW Plt Count MPV Absolute Neuts (auto) Neutrophils % Lymphocytes % Monocytes % Eosinophils % Basophils % Nucleated RBC % PT with INR INR Sodium Potassium Chloride Carbon Dioxide Anion Gap BUN Creatinine Est GFR (CKD-EPI)AfAm Est GFR (CKD-EPI)NonAf Random Glucose Calcium Magnesium Total Bilirubin AST ALT Alkaline Phosphatase Total Protein Albumin Urine Osmolality 225 L Ur Random Creatinine 59.0 Ur Random Sodium 43 Random Vancomycin RPR Titer Hep A IgM Ab Confirm Hep Bs Antigen Hep B Core IgM Ab Hepatitis C Ab (EIA) HIV 1&2 Ag/Ab, 4th Gen VZV IgM Antibody 11/07/19 11/07/19 11/07/19 06:30 06:30 06:30 WBC 7.2 RBC 4.29 Hgb 14.1 Hct 41.6 MCV 97.0 H MCH 33.0 MCHC 34.0 RDW 13.6 Plt Count 223 MPV 9.7 Absolute Neuts (auto) 4.9 Neutrophils % 67.1 Lymphocytes % 21.1 D Monocytes % 9.4 Eosinophils % 1.5 D Basophils % 0.9 Nucleated RBC % 0 PT with INR INR Sodium 139 Potassium 4.5 Chloride 107 Carbon Dioxide 24 Anion Gap 8 BUN 16.6 Creatinine 2.2 H Est GFR (CKD-EPI)AfAm 41.88 Est GFR (CKD-EPI)NonAf 36.13 Random Glucose 83 Calcium 8.0 L Magnesium 2.1 Total Bilirubin 0.7 AST 17 ALT 18 Alkaline Phosphatase 121 H Total Protein 7.4 Albumin 2.9 L Urine Osmolality Ur Random Creatinine Ur Random Sodium Random Vancomycin 11.6 RPR Titer Hep A IgM Ab Confirm Hep Bs Antigen Hep B Core IgM Ab Hepatitis C Ab (EIA) HIV 1&2 Ag/Ab, 4th Gen VZV IgM Antibody 11/07/19 06:30 WBC RBC Hgb Hct MCV MCH MCHC RDW Plt Count MPV Absolute Neuts (auto) Neutrophils % Lymphocytes % Monocytes % Eosinophils % Basophils % Nucleated RBC % PT with INR 13.30 H INR 1.13 H Sodium Potassium Chloride Carbon Dioxide Anion Gap BUN Creatinine Est GFR (CKD-EPI)AfAm Est GFR (CKD-EPI)NonAf Random Glucose Calcium Magnesium Total Bilirubin AST ALT Alkaline Phosphatase Total Protein Albumin Urine Osmolality Ur Random Creatinine Ur Random Sodium Random Vancomycin RPR Titer Hep A IgM Ab Confirm Hep Bs Antigen Hep B Core IgM Ab Hepatitis C Ab (EIA) HIV 1&2 Ag/Ab, 4th Gen VZV IgM Antibody Active Medications Generic Name Dose Route Start Last Admin Trade Name Freq PRN Reason Stop Dose Admin Acetaminophen 650 mg 11/04/19 19:17 11/05/19 21:22 Tylenol - PO 650 mg Q6H PRN Administration PAIN LEVEL 4 - 6 Heparin Sodium (Porcine) 5,000 unit 11/04/19 22:00 11/06/19 21:24 Heparin - SQ 5,000 unit BID JEANETTE Administration Ceftriaxone Sodium 2 gm/ 100 mls @ 200 mls/hr 11/06/19 16:45 11/06/19 17:27 Dextrose IVPB 200 mls/hr DAILY JEANETTE Administration Protocol Clindamycin Phosphate 600 mg in 50 mls @ 100 mls/hr 11/06/19 18:00 11/07/19 01:04 Cleocin 600 Mg Premix Ivpb - IVPB 100 mls/hr Q8H-IV JEANETTE Administration Protocol Sodium Chloride 1,000 mls @ 83 mls/hr 11/06/19 17:00 11/06/19 17:26 1/2 Normal Saline IV 83 mls/hr ASDIR JEANETTE Administration Mupirocin 1 applic 11/04/19 22:00 11/06/19 21:24 Bactroban 2% Ointment - TP 1 applic BID JEANETTE Administration Senna 2 tab 11/04/19 22:00 11/06/19 21:24 Senna - PO 2 tab HS JEANETTE Administration ASSESSMENT/PLAN: Problem List - Problems (1) TATE (acute kidney injury) Assessment/Plan: improving, devloped tate and creat increased to 2.9, now improving at 2.2 continue with hydration renal ultrasound unremarkable renal following monitor intake and output repeat ua Code(s): N17.9 - ACUTE KIDNEY FAILURE, UNSPECIFIED (2) Cellulitis of foot, right Assessment/Plan: on ceftriaxone, clindamycin per ID on bactrban foot wound open to air, no drainage or odor. wounds crusted over patient denies any foot pain foot and ankle xray negative for fracture. Code(s): L03.115 - CELLULITIS OF RIGHT LOWER LIMB (3) Foot infection Assessment/Plan: on ceftriaxone/clindamycin wbc normalized today, no fevers Code(s): L08.9 - LOCAL INFECTION OF THE SKIN AND SUBCUTANEOUS TISSUE, UNSP (4) Herpetic dermatitis Assessment/Plan: antivirals being held for tate Code(s): B00.89 - OTHER HERPESVIRAL INFECTION (5) Prophylactic measure Assessment/Plan: fen 1/2 ns @ 83 monitor electrolytes low salt diet full code bowel regimen intake output monitoring Code(s): Z29.9 - ENCOUNTER FOR PROPHYLACTIC MEASURES, UNSPECIFIED (6) DVT prophylaxis Assessment/Plan: heparin bid Code(s): Z29.9 - ENCOUNTER FOR PROPHYLACTIC MEASURES, UNSPECIFIED Visit type - Emergency Visit Emergency Visit: Yes ED Registration Date: 11/04/19 Care time: The patient presented to the Emergency Department on the above date and was hospitalized for further evaluation of their emergent condition. - New Patient This patient is new to me today: Yes Date on this admission: 11/07/19 - Critical Care Critical Care patient: No - Discharge Referral Referred to [facility] Med [facility]C.: No
[2019-11-07] MEDS ORDERED: PT OWN MED DRAWER 7, Y5N ONE ×2 (10:11→10:54)
[2019-11-07] MEDS ORDERED: DEXTROSE 5%-WATER 100 ML IVPB ONE (10:12)
[2019-11-07] MEDS: CEFTRIAXONE 2 GM in DEXTROSE 5%-WATER 100 ML IVPB SCH (10:20)
[2019-11-07] MEDS: HEPARIN NA (PORCINE) 5,000 UNITS/ML 1ML VIAL SQ SCH ×2 (10:20→22:10)
[2019-11-07] MEDS: MUPIROCIN 2% TOPICAL OINTMENT 22 GM TUBE TP SCH ×2 (10:26→22:19)
[2019-11-07] MEDS: LACTOBACILLUS ACIDOPHILUS 1 TABLET PO SCH (11:41)
[2019-11-07] MEDS: SODIUM CHLORIDE 0.45% 1,000 ML IV SCH ×2 (17:41→22:18)
[2019-11-07 18:40] LABS: URINE APPEARANCE CLEAR; URINE BILIRUBIN NEGATIVE (NEGATIVE); URINE COLOR YELLOW; URINE GLUCOSE (UA) NEGATIVE (NEGATIVE); URINE KETONE NEGATIVE (NEGATIVE); URINE LEUK ESTERASE NEGATIVE (NEGATIVE); URINE NITRITE NEGATIVE (NEGATIVE); URINE PROTEIN NEGATIVE (NEGATIVE); URINE UROBILINOGEN 0.2 mg/dL (0.2-1.0)
--- NOTE | 2019-11-07 19:13 | PN ---
Progress Note, Physician History of Present Illness: Pt seen and examined at bedside. He is awake and alert. He feels that his foot is getting better. - Current Medication List Current Medications: Active Medications Acetaminophen (Tylenol -) 650 mg PO Q6H PRN PRN Reason: PAIN LEVEL 4 - 6 Last Admin: 11/05/19 21:22 Dose: 650 mg Heparin Sodium (Porcine) (Heparin -) 5,000 unit SQ BID JEANETTE Last Admin: 11/07/19 10:20 Dose: 5,000 unit Ceftriaxone Sodium 2 gm/ (Dextrose) 100 mls @ 200 mls/hr IVPB DAILY JEANETTE; Protocol Last Admin: 11/07/19 10:20 Dose: 200 mls/hr Clindamycin Phosphate (Cleocin 600 Mg Premix Ivpb -) 600 mg in 50 mls @ 100 mls /hr IVPB Q8H-IV JEANETTE; Protocol Last Admin: 11/07/19 17:41 Dose: 100 mls/hr Sodium Chloride (1/2 Normal Saline) 1,000 mls @ 83 mls/hr IV ASDIR JEANETTE Last Admin: 11/07/19 17:41 Dose: Not Given Lactobacillus Acidophilus (Bacid -) 1 tab PO DAILY JEANETTE Last Admin: 11/07/19 11:41 Dose: 1 tab Mupirocin (Bactroban 2% Ointment -) 1 applic TP BID JEANETTE Last Admin: 11/07/19 10:26 Dose: 1 applic Senna (Senna -) 2 tab PO HS JEANETTE Last Admin: 11/06/19 21:24 Dose: 2 tab - Objective Vital Signs: Vital Signs Temperature 98.5 F 11/07/19 14:00 Pulse Rate 59 L 11/07/19 14:00 Respiratory Rate 20 11/07/19 14:00 Blood Pressure 129/78 11/07/19 14:00 O2 Sat by Pulse Oximetry (%) 99 11/07/19 09:00 Constitutional: Yes: Calm HENT: Yes: Atraumatic Cardiovascular: Yes: S1, S2 Respiratory: Yes: CTA Bilaterally Gastrointestinal: Yes: Soft Genitourinary: Yes: WNL Edema: No Wound/Incision: Yes: Open to air Neurological: Yes: Oriented Psychiatric: Yes: Oriented Labs: CBC, BMP 11/07/19 06:30 11/07/19 06:30 INR, PTT INR 1.13 (0.83-1.09) H 11/07/19 06:30 Problem List - Problems (1) TATE (acute kidney injury) Code(s): N17.9 - ACUTE KIDNEY FAILURE, UNSPECIFIED (2) Cellulitis of foot, right Code(s): L03.115 - CELLULITIS OF RIGHT LOWER LIMB (3) Foot infection Code(s): L08.9 - LOCAL INFECTION OF THE SKIN AND SUBCUTANEOUS TISSUE, UNSP Assessment/Plan Current Medications Generic Name Dose Route Start Last Admin Trade Name Freq PRN Reason Stop Dose Admin Acetaminophen 650 mg 11/04/19 19:17 11/05/19 21:22 Tylenol - PO 650 mg Q6H PRN Administration PAIN LEVEL 4 - 6 Heparin Sodium (Porcine) 5,000 unit 11/04/19 22:00 11/07/19 10:20 Heparin - SQ 5,000 unit BID JEANETTE Administration Ceftriaxone Sodium 2 gm/ 100 mls @ 200 mls/hr 11/06/19 16:45 11/07/19 10:20 Dextrose IVPB 200 mls/hr DAILY JEANETTE Administration Protocol Clindamycin Phosphate 600 mg in 50 mls @ 100 mls/hr 11/06/19 18:00 11/07/19 17:41 Cleocin 600 Mg Premix Ivpb - IVPB 100 mls/hr Q8H-IV JEANETTE Administration Protocol Sodium Chloride 1,000 mls @ 83 mls/hr 11/06/19 17:00 11/07/19 17:41 1/2 Normal Saline IV Not Given ASDIR JEANETTE Lactobacillus Acidophilus 1 tab 11/07/19 11:00 11/07/19 11:41 Bacid - PO 1 tab DAILY JEANETTE Administration Mupirocin 1 applic 11/04/19 22:00 11/07/19 10:26 Bactroban 2% Ointment - TP 1 applic BID JEANETTE Administration Senna 2 tab 11/04/19 22:00 11/06/19 21:24 Senna - PO 2 tab HS JEANETTE Administration Impression 1. TATE 2. cellulitis 3. possible zoster Plan - renal function is improving - cont fluids - repeat labs in am - follow urine studies - abx adjusted by ID - renal ultrasound revewed
[2019-11-07] MEDS: ACETAMINOPHEN 325 MG TABLET (FP) PO PRN (22:09)
[2019-11-07] MEDS: SENNOSIDES 8.6MG TABLET (FP) PO SCH (22:10)
--- NOTE | 2019-11-07 22:51 | PN ---
Progress Note, Physician History of Present Illness: AWAKE IN BED OFFERS NO COMPLAINTS DENIES FOOT PAIN - Current Medication List Current Medications: Active Medications Acetaminophen (Tylenol -) 650 mg PO Q6H PRN PRN Reason: PAIN LEVEL 4 - 6 Last Admin: 11/07/19 22:09 Dose: 650 mg Heparin Sodium (Porcine) (Heparin -) 5,000 unit SQ BID JEANETTE Last Admin: 11/07/19 22:10 Dose: 5,000 unit Ceftriaxone Sodium 2 gm/ (Dextrose) 100 mls @ 200 mls/hr IVPB DAILY JEANETTE; Protocol Last Admin: 11/07/19 10:20 Dose: 200 mls/hr Clindamycin Phosphate (Cleocin 600 Mg Premix Ivpb -) 600 mg in 50 mls @ 100 mls /hr IVPB Q8H-IV JEANETTE; Protocol Last Admin: 11/07/19 17:41 Dose: 100 mls/hr Sodium Chloride (1/2 Normal Saline) 1,000 mls @ 83 mls/hr IV ASDIR JEANETTE Last Admin: 11/07/19 22:18 Dose: 83 mls/hr Lactobacillus Acidophilus (Bacid -) 1 tab PO DAILY JEANETTE Last Admin: 11/07/19 11:41 Dose: 1 tab Mupirocin (Bactroban 2% Ointment -) 1 applic TP BID JEANETTE Last Admin: 11/07/19 22:19 Dose: 1 applic Senna (Senna -) 2 tab PO HS JEANETTE Last Admin: 11/07/19 22:10 Dose: 2 tab - Objective Vital Signs: Vital Signs Temperature 98.0 F 11/07/19 20:14 Pulse Rate 60 11/07/19 20:14 Respiratory Rate 18 11/07/19 20:14 Blood Pressure 124/76 11/07/19 20:14 O2 Sat by Pulse Oximetry (%) 97 11/07/19 20:45 Constitutional: Yes: No Distress Eyes: Yes: Conjunctiva Clear Cardiovascular: Yes: Regular Rate and Rhythm, S1, S2 Respiratory: Yes: CTA Bilaterally Gastrointestinal: Yes: Normal Bowel Sounds, Soft. No: Tenderness Extremities: Yes: Other (R FOOT SWELLING IMPROVED ERYTHEMA NEARLY ALL RESOLVED) Labs: CBC, BMP 11/07/19 06:30 11/07/19 06:30 INR, PTT INR 1.13 (0.83-1.09) H 11/07/19 06:30 Assessment/Plan CELLULITIS R FOOT IMPROVED ? ACUTE RENAL FAILURE + WOUND C/S GRP A STREP CONTINUE CEFTRIAXONE/ CLINDAMYCIN IVF REPEAT CHEMISTRIES
[2019-11-08] MEDS: CLINDAMYCIN 600MG PREMIX IVPB 600 MG/50 ML BAG IVPB SCH ×2 (01:21→10:34)
[2019-11-08 08:05] LABS: ALBUMIN 2.9 g/dl (3.4-5.0); BILIRUBIN,TOTAL 0.4 mg/dL (0.2-1); BLOOD UREA NITROGEN 15.9 mg/dL (7-18); CALCIUM 8.7 mg/dL (8.5-10.1); CREATININE 1.8 mg/dL (0.55-1.3); MAGNESIUM 2.3 mg/dL (1.8-2.4); POTASSIUM 4.4 mmol/L (3.5-5.1); TOT PROT 7.4 g/dl (6.4-8.2)
--- NOTE | 2019-11-08 09:46 | PN ---
Physical Exam: SUBJECTIVE: Patient seen and examined, no overnight events. feels well and denies any foot pain. wants to go home. OBJECTIVE: Patient is a 39 year old male from [facility]. He denies any past medical history and is on no home medications. Patient presents to the ED with right foot abrasions, edema and pain that started on . He is being treated for cellulitis vs. herpatic zoster outbreak. During treatment, he was noted to have NEPTALI and antibiotics held. He is now on Ceftriaxone and Clindamycin. Patient reports pain of the abdomen and flanks yesterday after being given antibiotics. He denies any nausea or vomiting. He denies any shortness of breath or wheezing. problem list: cellulitis vs herpes zoster right lower ext edema NEPTALI Vital Signs Period Temp Pulse Resp BP Sys/Hardy Pulse Ox Last 24 Hr 97.9 F-98.5 F 59-64 18-20 116-129/70-78 97 GENERAL: The patient is awake, alert, and fully oriented, in no acute distress. speaks bulgarian but mostly speaks pashto. HEAD: Normal with no signs of trauma. EYES: PERRL, extraocular movements intact, sclera anicteric, conjunctiva clear. No ptosis. ENT: Ears normal, nares patent, oropharynx clear without exudates, moist mucous membranes. NECK: Trachea midline, full range of motion, supple. LUNGS: Breath sounds equal, clear to auscultation bilaterally, no wheezes HEART: Regular rate and rhythm, S1, S2 without murmur, rub or gallop. ABDOMEN: Soft, nontender, nondistended, normoactive bowel sounds EXTREMITIES: right lower foot edema on anterior aspect of foot, with three abrasion on right foot. NEUROLOGICAL: Normal speech, gait not observed. Laboratory Results - last 24 hr 11/07/19 11/08/19 17:45 06:35 Sodium 137 Potassium 4.4 Chloride 105 Carbon Dioxide 27 Anion Gap 5 L BUN 15.9 Creatinine 1.8 H Est GFR (CKD-EPI)AfAm 53.37 Est GFR (CKD-EPI)NonAf 46.05 Random Glucose 81 Calcium 8.7 Magnesium 2.3 Total Bilirubin 0.4 AST 23 ALT 27 Alkaline Phosphatase 126 H Total Protein 7.4 Albumin 2.9 L Urine Color Yellow Urine Appearance Clear Urine pH 6.0 Ur Specific [place] 1.009 L Urine Protein Negative Urine Glucose (UA) Negative Urine Ketones Negative Urine Blood Negative Urine Nitrite Negative Urine Bilirubin Negative Urine Urobilinogen 0.2 Ur Leukocyte Esterase Negative Active Medications Generic Name Dose Route Start Last Admin Trade Name Billyq PRN Reason Stop Dose Admin Acetaminophen 650 mg 11/04/19 19:17 11/07/19 22:09 Tylenol - PO 650 mg Q6H PRN Administration PAIN LEVEL 4 - 6 Heparin Sodium (Porcine) 5,000 unit 11/04/19 22:00 11/07/19 22:10 Heparin - SQ 5,000 unit BID JEANETTE Administration Ceftriaxone Sodium 2 gm/ 100 mls @ 200 mls/hr 11/06/19 16:45 11/07/19 10:20 Dextrose IVPB 200 mls/hr DAILY JEANETTE Administration Protocol Clindamycin Phosphate 600 mg in 50 mls @ 100 mls/hr 11/06/19 18:00 11/08/19 01:21 Cleocin 600 Mg Premix Ivpb - IVPB 100 mls/hr Q8H-IV JEANETTE Administration Protocol Sodium Chloride 1,000 mls @ 83 mls/hr 11/06/19 17:00 11/07/19 22:18 1/2 Normal Saline IV 83 mls/hr ASDIR JEANETTE Administration Lactobacillus Acidophilus 1 tab 11/07/19 11:00 11/07/19 11:41 Bacid - PO 1 tab DAILY JEANETTE Administration Mupirocin 1 applic 11/04/19 22:00 11/07/19 22:19 Bactroban 2% Ointment - TP 1 applic BID JEANETTE Administration Senna 2 tab 11/04/19 22:00 11/07/19 22:10 Senna - PO 2 tab HS JEANETTE Administration ASSESSMENT/PLAN: Problem List - Problems (1) NEPTALI (acute kidney injury) Assessment/Plan: improving, devloped neptali and creat increased to 2.9, now improving at 1.8 continue with hydration renal ultrasound unremarkable renal following monitor intake and output repeat ua noted Code(s): N17.9 - ACUTE KIDNEY FAILURE, UNSPECIFIED (2) Cellulitis of foot, right Assessment/Plan: on ceftriaxone, clindamycin per ID on bactroban foot wound open to air, no drainage or odor. wounds crusted over patient denies any foot pain foot and ankle xray negative for fracture. Code(s): L03.115 - CELLULITIS OF RIGHT LOWER LIMB (3) Foot infection Assessment/Plan: on ceftriaxone/clindamycin wbc normalized, no fevers Code(s): L08.9 - LOCAL INFECTION OF THE SKIN AND SUBCUTANEOUS TISSUE, UNSP (4) Herpetic dermatitis Assessment/Plan: antivirals being held for neptali Code(s): B00.89 - OTHER HERPESVIRAL INFECTION (5) Prophylactic measure Assessment/Plan: fen 1/2 ns @ 83 monitor electrolytes low salt diet full code bowel regimen intake output monitoring Code(s): Z29.9 - ENCOUNTER FOR PROPHYLACTIC MEASURES, UNSPECIFIED (6) DVT prophylaxis Assessment/Plan: heparin bid Code(s): Z29.9 - ENCOUNTER FOR PROPHYLACTIC MEASURES, UNSPECIFIED Visit type - Emergency Visit Emergency Visit: Yes ED Registration Date: 11/04/19 Care time: The patient presented to the Emergency Department on the above date and was hospitalized for further evaluation of their emergent condition. - New Patient This patient is new to me today: No - Critical Care Critical Care patient: No - Discharge Referral Referred to [facility] Med P.C.: No
[2019-11-08] MEDS ORDERED: DEXTROSE 5%-WATER 100 ML IVPB ONE (10:28)
[2019-11-08] MEDS ORDERED: PT OWN MED DRAWER 7, Y5N ONE (10:28)
[2019-11-08] MEDS: LACTOBACILLUS ACIDOPHILUS 1 TABLET PO SCH (10:34)
[2019-11-08] MEDS: CEFTRIAXONE 2 GM in DEXTROSE 5%-WATER 100 ML IVPB SCH (10:34)
[2019-11-08] MEDS: HEPARIN NA (PORCINE) 5,000 UNITS/ML 1ML VIAL SQ SCH (10:34)
[2019-11-08] MEDS: MUPIROCIN 2% TOPICAL OINTMENT 22 GM TUBE TP SCH (10:38)
--- NOTE | 2019-11-08 11:00 | PN ---
Progress Note, Physician History of Present Illness: AWAKE IN BED OFFERS NO COMPLAINTS DENIES FOOT PAIN AFEBRILE WBC WNL - Current Medication List Current Medications: Active Medications Acetaminophen (Tylenol -) 650 mg PO Q6H PRN PRN Reason: PAIN LEVEL 4 - 6 Last Admin: 11/07/19 22:09 Dose: 650 mg Heparin Sodium (Porcine) (Heparin -) 5,000 unit SQ BID JEANETTE Last Admin: 11/08/19 10:34 Dose: 5,000 unit Ceftriaxone Sodium 2 gm/ (Dextrose) 100 mls @ 200 mls/hr IVPB DAILY JEANETTE; Protocol Last Admin: 11/08/19 10:34 Dose: 200 mls/hr Clindamycin Phosphate (Cleocin 600 Mg Premix Ivpb -) 600 mg in 50 mls @ 100 mls /hr IVPB Q8H-IV JEANETTE; Protocol Last Admin: 11/08/19 10:34 Dose: 100 mls/hr Sodium Chloride (1/2 Normal Saline) 1,000 mls @ 83 mls/hr IV ASDIR JEANETTE Last Admin: 11/07/19 22:18 Dose: 83 mls/hr Lactobacillus Acidophilus (Bacid -) 1 tab PO DAILY JEANETTE Last Admin: 11/08/19 10:34 Dose: 1 tab Mupirocin (Bactroban 2% Ointment -) 1 applic TP BID JEANETTE Last Admin: 11/08/19 10:38 Dose: 1 applic Senna (Senna -) 2 tab PO HS JEANETTE Last Admin: 11/07/19 22:10 Dose: 2 tab - Objective Vital Signs: Vital Signs Temperature 97.9 F 11/08/19 06:31 Pulse Rate 60 11/07/19 20:14 Respiratory Rate 18 11/07/19 20:14 Blood Pressure 124/76 11/07/19 20:14 O2 Sat by Pulse Oximetry (%) 97 11/07/19 20:45 Constitutional: Yes: No Distress Cardiovascular: Yes: Regular Rate and Rhythm, S1, S2 Respiratory: Yes: CTA Bilaterally Gastrointestinal: Yes: Normal Bowel Sounds, Soft. No: Tenderness Extremities: Yes: Other (R FOOT SWELLING IMPROVED ERYTHEMA NEARLY ALL RESOLVED) Labs: CBC, BMP 11/07/19 06:30 11/08/19 06:35 INR, PTT INR 1.13 (0.83-1.09) H 11/07/19 06:30 Assessment/Plan CELLULITIS R FOOT IMPROVED ACUTE RENAL FAILURE + WOUND C/S GRP A STREP SUBSTITUTE KEFLEX 500MG PO TID X 7D OUTPATIENT F/U
[2019-11-08 11:02] LABS: BASO % 1.1 % (0-2.0); EOS % 3.7 % (0-4.5); HEMATOCRIT 41.9 % (35.4-49); HEMOGLOBIN 14.1 GM/dL (11.7-16.9); LYMPH % 29.6 % (8-40); MCHC 33.8 g/dl (32.0-35.9); MEAN CELL VOLUME 97.8 fl (80-96); MEAN PLT VOLUME 9.8 fl (7.5-11.1); MONO % 11.3 % (3.8-10.2); NEUT % 54.3 % (42.8-82.8); PLATELET COUNT 239 K/MM3 (134-434); RBC 4.28 M/mm3 (4.00-5.60); RDW 13.5 % (11.9-15.9); WHITE BLOOD COUNT 6.1 K/mm3 (4.0-10.0)
--- NOTE | 2019-11-08 13:34 | PN ---
Progress Note, Physician History of Present Illness: Pt seen and examined at bedside. He is awake and alert. He says that he feels better. - Current Medication List Current Medications: Active Medications Acetaminophen (Tylenol -) 650 mg PO Q6H PRN PRN Reason: PAIN LEVEL 4 - 6 Last Admin: 11/07/19 22:09 Dose: 650 mg Cephalexin HCl (Keflex -) [address] [facility] Stop: 11/15/19 15:00 Heparin Sodium (Porcine) (Heparin -) 5,[address] [facility] Last Admin: 11/08/19 10:34 Dose: 5,000 unit Sodium Chloride (1/2 Normal Saline) 1,000 mls @ 83 mls/hr IV ASDIR [facility] Last Admin: 11/07/19 22:18 Dose: 83 mls/hr Lactobacillus Acidophilus (Bacid -) [address] [facility] Last Admin: 11/08/19 10:34 Dose: 1 tab Mupirocin (Bactroban 2% Ointment -) [address] [facility] Last Admin: 11/08/19 10:38 Dose: 1 applic Senna (Senna -) [address] [facility] Last Admin: 11/07/19 22:10 Dose: 2 tab - Objective Vital Signs: Vital Signs Temperature 97.9 F 11/08/19 06:31 Pulse Rate 60 11/07/19 20:14 Respiratory Rate 18 11/07/19 20:14 Blood Pressure 124/76 11/07/19 20:14 O2 Sat by Pulse Oximetry (%) 99 11/08/19 09:00 Constitutional: Yes: Calm Eyes: Yes: Conjunctiva Clear HENT: Yes: Atraumatic Neck: Yes: Supple Cardiovascular: Yes: S1, S2 Respiratory: Yes: CTA Bilaterally Gastrointestinal: Yes: Normal Bowel Sounds, Soft Genitourinary: Yes: WNL Musculoskeletal: Yes: WNL Edema: No Wound/Incision: Yes: Open to air Neurological: Yes: Oriented Psychiatric: Yes: Oriented Labs: CBC, BMP 11/08/19 06:35 11/08/19 06:35 INR, PTT INR 1.13 (0.83-1.09) H 11/07/19 06:30 Problem List - Problems (1) TATE (acute kidney injury) Code(s): N17.9 - ACUTE KIDNEY FAILURE, UNSPECIFIED (2) Cellulitis of foot, right Code(s): L03.115 - CELLULITIS OF RIGHT LOWER LIMB (3) Foot infection Code(s): L08.9 - LOCAL INFECTION OF THE SKIN AND SUBCUTANEOUS TISSUE, UNSP Assessment/Plan Current Medications Generic Name Dose Route Start Last Admin Trade Name Freq PRN Reason Stop Dose Admin Acetaminophen 650 mg 11/04/19 19:17 11/07/19 22:09 Tylenol - PO 650 mg Q6H PRN Administration PAIN LEVEL 4 - 6 Cephalexin HCl 500 mg 11/08/19 14:00 Keflex - PO 11/15/19 15:00 TID JEANETTE Heparin Sodium (Porcine) 5,000 unit 11/04/19 22:00 11/08/19 10:34 Heparin - SQ 5,000 unit BID JEANETTE Administration Sodium Chloride 1,000 mls @ 83 mls/hr 11/06/19 17:00 11/07/19 22:18 1/2 Normal Saline IV 83 mls/hr ASDIR JEANETTE Administration Lactobacillus Acidophilus 1 tab 11/07/19 11:00 11/08/19 10:34 Bacid - PO 1 tab DAILY JEANETTE Administration Mupirocin 1 applic 11/04/19 22:00 11/08/19 10:38 Bactroban 2% Ointment - TP 1 applic BID JEANETTE Administration Senna 2 tab 11/04/19 22:00 11/07/19 22:10 Senna - PO 2 tab HS JEANETTE Administration Laboratory Tests 11/06/19 11/07/19 16:00 17:45 Urine Protein Negative Urine Blood Negative Urine Eosinophils Pending Impression 1. TATE 2. cellulitis 3. 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
[2019-11-08] MEDS ORDERED: CEPHALEXIN MONOHYDRATE 500 MG CAPSULE (UD) PO SCH (14:00)
[2019-11-08 15:09] VITALS: BP 120/70; PULSE 64; TEMP 98.3
--- NOTE | 2019-11-08 15:12 | DS ---
Physical Exam: SUBJECTIVE: Patient seen and examined. denies any wheezing, denies shortness of breath. no foot pain. wants to go home. OBJECTIVE: Patient is a 39 year old male from [facility]. He denies any past medical history and is on no home medications. Patient presents to the ED with right foot abrasions, edema and pain that started on . During admission, patient was being treated for right foot cellulitis vs herpetic outbreak. During treatment, with antivirals and IV antibiotics, patient developed TATE and antibiotics switched to ceftriaxone and clindamycin and antivirals stopped. He will now be transitioned to keflex 500mg TID x 7 more days. TATE now has improved and kidney ultrasound is unremarkable. Patient to be discharged home with outpatient follow up at the [facility] since he is uninsured. The cost of the antibiotics is $8.00 and provided by [facility]. problem list: cellulitis vs herpes zoster - improved right lower ext edema - improved TATE - improved Vital Signs Period Temp Pulse Resp BP Sys/Hardy Pulse Ox Last 24 Hr 97.9 F-98.3 F 60-64 18-18 116-124/70-76 97-99 PHYSICAL EXAM GENERAL: The patient is awake, alert, and fully oriented, in no acute distress. speaks sinhala but mostly speaks korean. HEAD: Normal with no signs of trauma. EYES: PERRL, extraocular movements intact, sclera anicteric, conjunctiva clear. No ptosis. ENT: Ears normal, nares patent, oropharynx clear without exudates, moist mucous membranes. NECK: Trachea midline, full range of motion, supple. LUNGS: Breath sounds equal, clear to auscultation bilaterally, no wheezes HEART: Regular rate and rhythm, S1, S2 without murmur, rub or gallop. ABDOMEN: Soft, nontender, nondistended, normoactive bowel sounds EXTREMITIES: right lower foot edema on anterior aspect of foot, with three abrasion on right foot, improving and now crusted over, no drainage or odor. NEUROLOGICAL: Normal speech, gait not observed. LABS Laboratory Results - last 24 hr 11/05/19 11/07/19 11/08/19 13:29 17:45 06:35 WBC RBC Hgb Hct MCV MCH MCHC RDW Plt Count MPV Absolute Neuts (auto) Neutrophils % Lymphocytes % Monocytes % Eosinophils % Basophils % Nucleated RBC % Sodium 137 Potassium 4.4 Chloride 105 Carbon Dioxide 27 Anion Gap 5 L BUN 15.9 Creatinine 1.8 H Est GFR (CKD-EPI)AfAm 53.37 Est GFR (CKD-EPI)NonAf 46.05 Random Glucose 81 Calcium 8.7 Magnesium 2.3 Total Bilirubin 0.4 AST 23 ALT 27 Alkaline Phosphatase 126 H Total Protein 7.4 Albumin 2.9 L Procalcitonin 0.17 H Urine Color Yellow Urine Appearance Clear Urine pH 6.0 Ur Specific [place] 1.009 L Urine Protein Negative Urine Glucose (UA) Negative Urine Ketones Negative Urine Blood Negative Urine Nitrite Negative Urine Bilirubin Negative Urine Urobilinogen 0.2 Ur Leukocyte Esterase Negative 11/08/19 06:35 WBC 6.1 RBC 4.28 Hgb 14.1 Hct 41.9 MCV 97.8 H MCH 33.0 MCHC 33.8 RDW 13.5 Plt Count 239 MPV 9.8 Absolute Neuts (auto) 3.3 Neutrophils % 54.3 Lymphocytes % 29.6 D Monocytes % 11.3 H Eosinophils % 3.7 D Basophils % 1.1 Nucleated RBC % 0 Sodium Potassium Chloride Carbon Dioxide Anion Gap BUN Creatinine Est GFR (CKD-EPI)AfAm Est GFR (CKD-EPI)NonAf Random Glucose Calcium Magnesium Total Bilirubin AST ALT Alkaline Phosphatase Total Protein Albumin Procalcitonin Urine Color Urine Appearance Urine pH Ur Specific [place] Urine Protein Urine Glucose (UA) Urine Ketones Urine Blood Urine Nitrite Urine Bilirubin Urine Urobilinogen Ur Leukocyte Esterase HOSPITAL COURSE: Date of Admission:11/04/19 Date of Discharge: 11/08/19 Minutes to complete discharge: 60 Discharge Summary Problems reviewed: Yes Reason For Visit: FOOT INFECTION Current Active Problems TATE (acute kidney injury) (Acute) Cellulitis of foot, right (Acute) DVT prophylaxis (Acute) Foot infection (Acute) Herpetic dermatitis (Acute) Prophylactic measure (Acute) Condition: Improved - Instructions Diet, Activity, Other Instructions: Mr. Franz: We will be sending you home today. Please continue taking the antibiotics for your right foot as follows: Keflex 500mg THREE times per day at 8am, 2pm and 8pm for 7 days total. Do not stop taking it until you COMPLETE the full dose. Keep your foot covered if you are working and inspect the foot every day, if you develop worse redness or swelling, please seek medical attention. Since you do not have a primary care doctor, we have referred you to [facility], please call for an appointment. The cost to see a physician is $150 per visit. You can also go to [address] as a walk in. They provide services at a sliding scale cost for those without insurance. It is important that you have your kidney function blood work repeated. -------- Please drink at least 8 glasses of water per day Please have your blood work repeated within 1 week If your foot does not heal or gets worse, please return to the emergency room. Thank you for allowing us to care for you. Referrals: [facility] at [place] [Provider Group] Bennett Rehman MD [Staff Physician] - Disposition: HOME - Home Medications Comprehensive Discharge Medication List: Ambulatory Orders Cephalexin Monohydrate [Keflex -] 500 mg PO TID #21 capsule 11/08/19 Problem List - Problems (1) TATE (acute kidney injury) Code(s): N17.9 - ACUTE KIDNEY FAILURE, UNSPECIFIED (2) Cellulitis of foot, right Code(s): L03.115 - CELLULITIS OF RIGHT LOWER LIMB (3) Foot infection Code(s): L08.9 - LOCAL INFECTION OF THE SKIN AND SUBCUTANEOUS TISSUE, UNSP (4) Herpetic dermatitis Code(s): B00.89 - OTHER HERPESVIRAL INFECTION (5) Prophylactic measure Code(s): Z29.9 - ENCOUNTER FOR PROPHYLACTIC MEASURES, UNSPECIFIED (6) DVT prophylaxis Code(s): Z29.9 - ENCOUNTER FOR PROPHYLACTIC MEASURES, UNSPECIFIED This patient is new to me today: No Emergency Visit: Yes ED Registration Date: 11/04/19 Care time: The patient presented to the Emergency Department on the above date and was hospitalized for further evaluation of their emergent condition. Critical Care patient: No - Discharge Referral Referred to [facility] Med P.C.: No
== END 2019-11-08 17:25 | disposition home or self-care (01) | DRG 383 ==
LOC: JER 14:33 → JERBED 18:36 → J8W 20:22
PROVIDERS: ATTEND Nurse Practitioner Family
DX: L03.115 Cellulitis of right lower limb (principal); N17.9 Acute kidney failure, unspecified; B00.89 Other herpesviral infection; B95.0 Streptococcus, group A, as the cause of diseases classified elsewhere; M79.671 Pain in right foot; Z29.9 Encounter for prophylactic measures, unspecified; R10.9 Unspecified abdominal pain; L08.9 Local infection of the skin and subcutaneous tissue, unspecified
CPT/HCPCS: 36415; 73610-TC-RT-FY; 73630-TC-RT-FY; 76775-TC; 80048; 80053; 80061; 80074; 81003; 82308; 82565; 83036; 83721; 83735; 83935; 84100; 84300; 84443; 85025; 85610; 85651; 86593; 86787; 87040; 87070; 87077; 87086; 87205; 87252; 87389; 93005; 93010; 97116-GP; 97161-GP; 99285-25; G0480; J1644